=== PATIENT | female | born 2005 | race Caucasian/White ===

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

== ENCOUNTER → 2023-06-03 10:17 | Outpatient (BNVA) | payer OTHER, SELFPAY | PROVIDERS: Visit Provider Nurse Practitioner Women's Health | DX: E28.2 Polycystic ovarian syndrome (principal) | CPT/HCPCS: 76830 ==

== ENCOUNTER 2025-01-06 22:53 | Emergency (ER) | payer BC, SELFPAY ==
[2025-01-06 23:01] VITALS: BP 132/88; PULSE 92; RESP 18; TEMP 36.7; O2SAT 99; BMI 24.7
--- NOTE | 2025-01-06 23:25 | CTR_ITS ---
PROCEDURE INFORMATION: Exam: CT Abdomen And Pelvis With Contrast Exam date and time: 01/07/2025 12:11 AM Age: 19 years old Clinical indication: Abdominal pain; Prior surgery; Surgery date: 6+ months; Surgery type: Hip and kidney; Additional info: Abd pain TECHNIQUE: Imaging protocol: Computed tomography of the abdomen and pelvis with contrast. Radiation optimization: All CT scans at this facility use at least one of these dose optimization techniques: automated exposure control; mA and/or kV adjustment per patient size (includes targeted exams where dose is matched to clinical indication); or iterative reconstruction. Contrast material: OMNI 350; Contrast volume: 100 ml; Contrast route: INTRAVENOUS (IV); COMPARISON: US transvaginal [id number] 06/03/2023 10:28 AM RADIATION DOSE METRICS: Total DLP (mGy-cm): 497.33 FINDINGS: Lungs: The lung bases are clear. Heart: Heart size is within normal limits. There is no pericardial effusion or pericardial thickening. Liver: The liver is normal. No hepatic masses are identified. Gallbladder and biliary ducts: The gallbladder is contracted. There is no ductal dilatation. Pancreas: The pancreas is normal. Spleen: The spleen is normal. Adrenal glands: The adrenal glands are normal. Kidneys and ureters: There is normal enhancement of the kidneys. No renal calcifications are identified. There is no hydronephrosis. Postoperative changes of the upper pole of the left kidney. Stomach and bowel: Moderate retained colonic stool. Appendix: A normal appendix is not identified. There is no secondary evidence of acute appendicitis. Intraperitoneal space: No pneumoperitoneum. No definitive inflammatory changes. Vasculature: The aorta is normal in course and caliber. No significant atherosclerotic calcifications are present. Lymph nodes: No enlarged lymph nodes are identified. Urinary bladder: The bladder is unremarkable. Reproductive: The uterus is present. 4.9 cm right adnexal cyst. 4.2 cm left adnexal cyst. Tbets-af-[id number] pelvic fluid. Bones/joints: No acute osseous abnormalities are seen. Soft tissues: Small periumbilical hernia containing only fat. CT/CT abdomen pelvis w con* [id number] IMPRESSION: 1. 4.9 cm right adnexal cyst and 4.2 cm left adnexal cyst with associated [id number] pelvic free fluid. Consider further evaluation with pelvic ultrasound if indicated. 2. No other evidence of acute intra-abdominal or pelvic process.
[2025-01-06 23:32] VITALS: BP 118/88; PULSE 93; O2SAT 93
[2025-01-06 23:33] LABS: Hematocrit 41.1 % (36-47); Hemoglobin 13.50 g/dL (11.27-16.99); Mean Corpuscular HGB Conc 32.8 g/dL (30-55); Mean Corpuscular Hemoglobin 28.8 pg (27-33); Mean Corpuscular Volume 87.8 fl (85-98); Nucleated Red Blood Cells % 0 %; Platelet Count 323 10^3/cmm (157-399); Red Blood Count 4.68 10^6/uL (3.85-5.65); White Blood Count 8.53 10^3/uL (3.29-11.43)
--- NOTE | 2025-01-06 23:36 | ED_ITS ---
HPI - Abdominal Pain 2 General: Chief Complaint: Abdominal Pain Stated Complaint: stabbing abd pain Time Seen by Provider: 01/06/25 22:55 Source: patient Mode of arrival: ambulatory Limitations: no limitations History of Present Illness: 19-year-old female states that she is sharif ving intercourse roughly 1 hour and started having sharp pain in her lower abdomen. States the pain is continuous currently an 8 out of 10 states much worse with movement and palpation. She denies any fever denies dysuria denies any vomiting. Associated Symptoms: Denies chills, diarrhea, dysuria, fever(s), nausea and vomiting Related Data Previous Rx's ?Medication ?Instructions ?Recorded drospirenone 3 mg-ethinyl 1 tab PO DAILY #84 tabs 04/28 11/18 estradiol 0.02 mg tablet (YULY (28)) hydrocodone 5 mg-acetaminophen 325 1 tab PO Q6H PRN pa in #14 tabs 01/07/25 mg tablet ondansetron 4 mg disintegrating 4 mg PO Q6H PRN nausea and 01/07/25 tablet vomiting #14 tabs Allergies Allergy/AdvReac Type Severity Reaction Status Date / Time Sulfa (Sulfonamide Allergy ALGY-Difficulty Verified 05/14/23 11:06 Antibiotics) Breathing sulfur Allergy Mild Unknown Uncoded 05/14/23 11:06 Levora AdvReac Severe ADR-Depress Uncoded 05/14/23 11:06 ion Review of Systems 2 Const: Denies: fever(s), chills, body aches or change in appetite ENMT: Denies: throat pain or dental pain Card: Denies: chest pain Resp: Denies: dyspnea GI: Reports: abdominal pain; Denies: nausea, vomiting or diarrhea : Denies: dysuria Musc: Denies: neck pain or back pain Skin/Breast: Denies: rash Neuro: Denies: headache(s) PFSH ED 2 PFSH: Medical History Migraines No pertinent past medical history neghx: htn,dm,thyroid,dvt/pe PCP: None Surgical History 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 Has bilateral spurs. History of placement of ear tubes Family History Grandfather Lung cancer Maternal Father Diabetes Hypertension Brother Diabetes, Onset Age: 21 Denies family history of Colon cancer Ovarian cancer Heart disease Hyperlipidemia Breast cancer Uterine cancer Thyroid disease Stroke Physical Exam 2 Const: COMMON NORMALS: no acute distress, patient oriented x3 and healthy appearing HENMT: COMMON NORMALS: normocephalic and atraumatic HEAD & SCALP: n ormocephalic and atraumatic Eye: COMMON NORMALS: EOMs intact bilaterally and conjunctivae normal C ONJUNCTIVA: Yes conjunctivae normal Neck/C-Spine: COMMON NORMALS: full ROM and supple Chest: COMMONS NORMALS: normal inspection of the chest Resp: COMMON NORMALS: normal respiratory effort, No retractions, No use of accessory muscles and clear to auscultation bilaterally AUSCULTATION: clear to auscultation bilaterally Cardio: COMMON NORMALS: regular rate, regular rhythm and No murmurs present (Cardio) RATE: regular rate RHYTHM: regular rhythm GI: COMMON NORMALS: Normal to inspection, nondistended, normoactive bowel sounds present, Soft to palpation and no masses PALPATION: Yes Soft to palpation OTHER: Tenderness in lower abdomen Extremity: COMMON NORMALS: normal to inspection and full ROM Neuro: COMMON NORMALS: patient oriented x3, moves all extremities and no focal motor deficits Psych: COMMON NORMALS: mental status grossly normal, Normal thought process present and cooperative THOUGHT PROCESS: Normal thought process present Skin: COMMON NORMALS: no rashes or lesions noted and no wounds GENERAL SKIN EXAM: no rashes or lesions noted Course 2 Vital Signs: Vital signs: Vital Signs Temperature 98.1 F 01/06/25 23:01 Pulse Rate 76 01/07/25 00:30 Respiratory Rate 18 01/06/25 23:01 Blood Pressure 112/73 01/07/25 00:30 Pulse Oximetry 98 01/07/25 00:30 Oxygen Delivery Me thod Room Air 01/06/25 23:32 MDM - Abdominal Pain Medical Decision Making Patient presents here with abdominal pain likely ruptured ovarian cyst she has no signs of torsion she stable for discharge we will get her HOSPITALITY INTERN follow-up she is return if worsening she understands agrees to plan. Medical Records I reviewed the patient's medical records. Lab Data I reviewed the patient's lab results. 01/06/25 23:01/06/25: Labs/Radiology: Radiology Impressions Abdomen/Pelvis CT 01/06/25: IMPRESSION: 1. 4.9 cm right adnexal cyst and 4.2 cm left adnexal cyst with associated [id number] pelvic free fluid. Consider further evaluation with pelvic ultrasound if indicated. 2. No other evidence of acute intra-abdominal or pelvic process. Laboratory Results WBC 8.53 10^3/uL (3.29-11.43) 01/06/25: RBC 4.68 10^6/uL (3.85-5.65) 01/06/25: Hgb 13.50 g/dL (11.27-16.99) 01/06/25: Hct 41.1 % (36-47) 01/06/25: MCV 87.8 fl (85-98) 01/06/25: MCH 28.8 pg (27-33) 01/06/25: MCHC 32.8 g/dL (30-55) 01/06/25: RDW 12.5 % (12.1-15.1) 01/06/25: Plt Count 323 10^3/cmm (157-399) 01/06/25: MPV 10.3 fL (7.4-10.4) 01/06/25: Neut % (Auto) 62.0 % 01/06/25: Lymph % (Auto) 28.5 % 01/06/25: [place] % (Auto) 6.9 % 01/06/25: Eos % (Auto) 1.6 % 01/06/25: Baso % (Auto) 0.8 % 01/06/25: Neut # (Auto) 5.28 10^3/uL (1.8-7.7) 01/06/25: Lymph # (Auto) 2.4 10^3/uL (0.8-4.8) 09/11/25 23:28 [place] # (Auto) 0.6 10^3/uL (0.2-0.9) 01/06/25 23:28 Eos # (Auto) 0.1 10^3/uL (0.0-0.8) 01/06/25 23: Baso # (Auto) 0.1 10^3/uL (0.0-0.1) 01/06/25 23: Nucleated RBC % (auto) 0 % 01/06/25 23: Nucleated RBCs # 0.0 /100WBC 01/06/25 23:28 Sodium 139 mmol/L (136-145) 01/06/25 23: Potassium 4.1 mmol/L (3.5-5.1) 01/06/25: Chloride 103 mmol/L (98-107) 01/06/25 23: Carbon Dioxide 22 mmol/L (22-29) 01/06/25 23: Anion Gap 18.1 (5-19) 01/06/25 23: BUN 10 mg/dL (6-20) 01/06/25 23: Creatinine 0.7 mg/dL (0.5-0.9) 01/06/25 23: GFR Calculation 105.6 mL/min (90-130) 01/06/25 23: Glucose 101 mg/dL (65-115) 01/06/25 23: Calculated Osmolality 287 mOsm/kg (285-295) 01/06/25: Calcium 9.7 mg/dL (8.5-10.5) 01/06/25: Total Bilirubin 0.2 mg/dL (0.15-1.2) 01/06/25 23:28 AST 16 U/L (0-32) 01/06/25 23: ALT 12 U/L (0-33) 01/06/25 23: Alkaline Phosphatase 68 U/L (35-105) 01/06/25 23: Total Protein 7.7 g/dL (6.6-8.7) 01/06/25 23:28 Albumin 4.5 g/dL (3.5-5.2) 01/06/25: Globulin 3.2 g/dL (1.3-4.6) 01/06/25 23:28 Lipase 33 U/L (13-60) 01/06/25 23:28 HCG, Qual Negative (Negative) 01/06/25 23:28 Urine Color Yellow (Yellow) 01/07/25 00:43 Urine Appearance Clear (CLEAR) 01/07/25 00:43 Urine pH 7.0 (5-7) 01/07/25 00:43 Ur Specific [place] 1.062 (1.005-1.030) H 01/07/25 00:43 Urine Protein Negative (Negative) 01/07/25 00:43 Urine Glucose (UA) Negative (Normal) 01/07/25 00:43 Urine Ketones Negative (Negative) 01/07/25 00:43 Urine Blood Negative (Negative) 01/07/25 00:43 Urine Nitrate Negative (Negative) 01/07/25 00:43 Urine Bilirubin Negative (Negative) 01/07/25 00:43 Urine Urobilinogen 1.0 mg/dL (Negative) 01/07/25 00:43 Ur Leukocyte Esterase Negative (Negative) 01/07/25 00:43 Urine RBC 3-5 /hpf (0-2) 01/07/25 00:43 Urine WBC 0-5 /hpf (0-5) 01/07/25 00:43 Ur Squamous Epith Cells 0-5 /hpf (0-5) 01/07/25 00:43 Amorphous Sediment Not Reportable 01/07/25 00:43 Urine Bacteria None seen /hpf (NONE) 01/07/25 00:43 Hyaline Casts 0.40 /lpf 01/07/25 00:43 All radiology interpretation(s) finalized by discharge Discharge Plan Discharge Patient Disposition: Home Clinical Impression: Abdominal pain, Ovarian cyst Condition: Stable Prescriptions: New hydrocodone-acetaminophen 5-325 mg tablet 1 tab PO Q6H PRN (Reason: pain) Qty: 14 0RF ondansetron 4 mg tablet,disintegrating 4 mg PO Q6H PRN (Reason: nausea and vomiting) Qty: 14 0RF No Action drospirenone-ethinyl estradiol [YULY (28)] 3-0.02 mg tablet 1 tab PO DAILY Qty: 84 0RF Discharge Orders: Discharge ED (Routine); Ordered 01/07/25 Ordered By: Sima Horner Referrals: Melissa Butler MD [Primary Care Provider, Family Practice] Benigno Doyle MD [Physician, HOSPITALITY INTERN] - 4-7 days Discharge Diet: Advance as tolerated Discharge Activity: Resume usual activity Patient Instructions: Ovarian Cyst (ED), Abdominal Pain (ED), Opioid Safety Print Language: Hong [place]er Coding Level of Care Code ED Manufacturing Plant Technician for Lor Mendoza
[2025-01-06] MEDS: morphine 4 mg/mL SDV 1 mL IVP (23:49)
[2025-01-06] MEDS: ondansetron 2 mg/ML SDV 2 mL 4 MG IVP (23:49)
[2025-01-06 23:50] LABS: HCG, Serum Qual Negative (Negative)
[2025-01-06 23:55] LABS: Alanine Aminotransferase 12 U/L (0-33); Albumin Level 4.5 g/dL (3.5-5.2); Alkaline Phosphatase 68 U/L (35-105); Anion Gap 18.1 (5-19); Aspartate Amino Transferase 16 U/L (0-32); Blood Urea Nitrogen 10 mg/dL (6-20); Calcium 9.7 mg/dL (8.5-10.5); Carbon Dioxide 22 mmol/L (22-29); Chloride 103 mmol/L (98-107); Creatinine Clr Calc Pharmacy 109.4868; Globulin 3.2 g/dL (1.3-4.6); Glucose 101 mg/dL (65-115); Lipase 33 U/L (13-60); Osmolality Calculated 287 mOsm/kg (285-295); Potassium 4.1 mmol/L (3.5-5.1); Sodium 139 mmol/L (136-145); Total Protein 7.7 g/dL (6.6-8.7)
[2025-01-07 00:01] VITALS: BP 109/70; PULSE 81; O2SAT 94
[2025-01-07 00:30] VITALS: BP 112/73; PULSE 76; O2SAT 98
[2025-01-07 00:53] LABS: Glucose Urine UA Negative (Normal); Nitrate Urine Negative (Negative)
[2025-01-07 00:58] LABS: Add Urine Microscopic? YES
[2025-01-07 01:13] LABS: Specific Gravity, Urine 1.062 (1.005-1.030)
[2025-01-07 01:55] VITALS: BP 101/62; PULSE 69; O2SAT 92
--- NOTE | 2025-01-10 07:43 | DCPLANNER ---
messaged [facility] for er f/u
== END 2025-01-07 01:56 | disposition home or self-care (01) ==
PROVIDERS: Emergency Provider Emergency Medicine; PCP Family Medicine
DX: R10.30 Lower abdominal pain, unspecified (principal); N83.201 Unspecified ovarian cyst, right side
CPT/HCPCS: 36415; 74177; 80053; 81001; 83690; 84703; 85025; 96361; 96374; 96375; 99285; J2270; J2405; J7030